=== PATIENT | female | born 1955 | race Caucasian/White ===

== ENCOUNTER 2016-11-11 13:41 | Inpatient (IN) | payer OTHER ==
[~2016-11-11] VITALS: Ht 162.6 cm; Wt 64.0 kg
--- NOTE | 2016-11-11 14:32 | ED Abdominal Pain ---
General Chief Complaint: Abdominal/GI Problems Stated Complaint: ABD PAIN/SYNCOPE Nursing Triage Note: AMB TO ROOM C/O EPI GASTRIC PAIN Sepsis Screen: No Definite Risk Source of Information: Patient Exam Limitations: No Limitations History of Present Illness Time Seen By Provider: 14:32 Allergies and Home Medications Allergies Coded Allergies: No Known Drug Allergies (Unverified , 11/11/16) Home Medications No Active Prescriptions or Reported Meds Past Fibbkkm-Qtqfaz-Ltxfya Hx Patient Social History Alcohol Use: Denies Use Recreational Drug Use: No Smoking Status: Never a Smoker Recent Foreign Travel: No Contact w/Someone Who Travel: No Recent Infectious Disease Expo: No Physical Exam Vital Signs VS - Last 72 Hours, by Label 11/11/16 13:49 Temp 97.6 Pulse 68 Resp 18 B/P (MAP) 164/98 Pulse Ox 98 Capillary Refill : Less Than 3 Seconds Progress/Results/Core Measures Results/Orders Vital Signs/I&O Vital Sign - Last 12Hours 11/11/16 13:49 Temp 97.6 Pulse 68 Resp 18 B/P (MAP) 164/98 Pulse Ox 98 Blood Pressure Mean: 120 Departure Departure-Patient Inst. Referrals: NO,LOCAL PHYSICIAN (PCP/Family) Primary Care Physician Scripts No Active Prescriptions or Reported Meds JOSEPH GRIMM Nov 11, 2016 14:32
[2016-11-11 14:42] LABS: KETONES,URINE 3+ (NEGATIVE); LEUKOCYTE ESTERASE ,URINE 2+ (NEGATIVE); NITRITE,URINE NEGATIVE (NEGATIVE); PH,URINE 6.5 (5-9); PROTEIN,URINE 2+ (NEGATIVE); UROBILINOGEN,URINE 8 MG/DL (NORMAL)
[2016-11-11 14:54] LABS: BILIRUBIN,URINE 2+ (NEGATIVE)
[2016-11-11 14:56] LABS: WBC,URINE 0-2 /HPF
[2016-11-11] MEDS ORDERED: FAMOTIDINE 20MG/2ML IV (PEPCID) IV STA (14:59)
[2016-11-11] MEDS ORDERED: NS IV 1000 ML 1,000 ML IV ONE (14:59)
[2016-11-11] MEDS ORDERED: KETOROLAC 30 MG/ML VIAL IVP STA (14:59)
[2016-11-11] MEDS ORDERED: ONDANSETRON 4 MG/2 ML (SDV) Z0FRAN IVP ONE (15:00)
[2016-11-11 15:11] LABS: BASOPHILS % (AUTO) 0 % (0-10); EOSINOPHILS % (AUTO) 0 % (0-10); LYMPHOCYTES % (AUTO) 8 % (12-44); MEAN CORPUSCULAR HEMOGLOBIN 32 PG (25-34); MEAN CORPUSCULAR HGB CONC 35 G/DL (32-36); MEAN CORPUSCULAR VOLUME 90 FL (80-99); MEAN PLATELET VOLUME 10.4 FL (7.4-10.4); MONOCYTES # (AUTO) 0.7 X 10^3 (0.0-1.0); MONOCYTES % (AUTO) 5 % (0-12); NEUTROPHILS # (AUTO) 12.2 X 10^3 (1.8-7.8); NEUTROPHILS % (AUTO) 88 % (42-75); PLATELET COUNT 323 10^3/uL (130-400); RED BLOOD COUNT 4.71 10^6/uL (4.35-5.85); RED CELL DISTRIBUTION WIDTH 12.2 % (10.0-14.5); WHITE BLOOD COUNT 13.9 10^3/uL (4.3-11.0)
[2016-11-11 15:42] LABS: ALANINE AMINOTRANSFERASE 708 U/L (0-55); ALBUMIN 4.2 GM/DL (3.2-4.5); ANION GAP 9 MMOL/L (5-14); ASPARTATE AMINO TRANSFERASE 1051 U/L (5-34); BLOOD UREA NITROGEN 10 MG/DL (7-18); BUN/CREATININE RATIO 14 (0-20); CALCIUM 9.4 MG/DL (8.5-10.1); CARBON DIOXIDE 26 MMOL/L (21-32); CHLORIDE 107 MMOL/L (98-107); CREATININE SERUM 0.72 MG/DL (0.60-1.30); GFR ESTIMATED > 60; GLUCOSE 135 MG/DL (70-105); POTASSIUM 3.4 MMOL/L (3.6-5.0); SODIUM 142 MMOL/L (135-145)
--- NOTE | 2016-11-11 16:11 | Diagnostic Imaging Report ---
PROCEDURE: US Gallbladder. TECHNIQUE: Multiple real-time grayscale images were obtained over the right upper quadrant in various projections. INDICATION: Severe right upper quadrant pain. FINDINGS: The visualized portions of the pancreas appear unremarkable. The liver is fairly homogeneous with no focal lesion. The gallbladder demonstrates multiple stones. There is pericholecystic fluid noted with borderline gallbladder wall thickness. The CBD is 7 mm in caliber, mildly dilated. There is mild intrahepatic biliary dilatation also suggested. The sonographic Durant sign is reportedly positive. The right kidney is 10.4 cm in length with no hydronephrosis or focal lesion. IMPRESSION: Gallbladder stones with pericholecystic fluid, concerning for acute cholecystitis. There is mild intra and extrahepatic biliary dilatation. CBD obstruction due to a distal stone is possible. A cholangiogram, ERCP, or MRCP would be helpful. The findings were discussed with Ms. Eden Gutierrez, the ER PA, at the time of dictation. Dictated by: Dictated on workstation # [id number]
[2016-11-11] MEDS ORDERED: PIPERACILLIN/TAZO 4.5 GM VIAL (ZOSYN) IV ONE (16:30)
[2016-11-11 16:35] LABS: LIPASE 3320 U/L (8-78)
[2016-11-11] MEDS ORDERED: NS (IVPB) 100 ML ONE ×2 (16:39→16:47)
[2016-11-11] MEDS: PIPERACILLIN/TAZO 4.5 GM VIAL (ZOSYN) IV ONE ×2 (17:04→17:12)
--- NOTE | 2016-11-11 17:22 | History & Physical-Surgical ---
History of Present Illness History of Present Illness Reason for visit/HPI Patient reports that she has had gallbladder issues in the past and tried to control it with diet. She reports that she had some spagetti last week and had some pain. She then reported that on Thursday, she had a slice of pizza that made it worse. She states that in the past, she just rested her stomach and she got better but this time the pain was not easing. Yesterday she had some rice, beets and carrots and later that day, the pain became unbearable. She waited it out during the night and at about 1 pm today, she decided to come to the ED. She reports being nauseated and vomited during the night. Date of Admission T Time Seen by Provider: 17:17 I consulted on this patient on 11/11/16 17:16 Attending Physician Admitting Physician No,Local Physician Consult Allergies and Home Medications Allergies Coded Allergies: No Known Drug Allergies (Unverified , 11/11/16) Home Medications No Active Prescriptions or Reported Meds Past Bgzmjiy-Okbnvh-Lerbex Hx Patient Social History Alcohol Use: Denies Use Recreational Drug Use: No Smoking Status: Never a Smoker Recent Foreign Travel: No Contact w/Someone Who Travel: No Recent Infectious Disease Expo: No Seasonal Allergies Seasonal Allergies: No Surgeries HX Surgeries: No Respiratory Hx Respiratory Disorders: No Neurological Hx Neurological Disorders: No Reproductive System : No Genitourinary Hx Genitourinary Disorders: No Gastrointestinal Hx Gastrointestinal Disorders: Yes Gastrointestinal Disorders: Gall Bladder Disease Musculoskeletal Hx Musculoskeletal Disorders: No HEENT HX ENT Disorders: No Cancer Hx Cancer: No Psychosocial Hx Psychiatric Problems: No Integumentary HX Skin/Integumentary Disorder: No Family Medical History Significant Family History: No Pertinent Family Hx Constitutional: fever, malaise, weakness EENTM: see HPI Respiratory: no symptoms reported Cardiovascular: no symptoms reported Gastrointestinal: RUQ, nausea, vomiting Genitourinary: no symptoms reported : No Musculoskeletal: no symptoms reported Skin: no symptoms reported Psychiatric/Neurological: No Symptoms Reported Physical Exam Vital Signs Vital Sign - Last 12Hours 11/11/16 11/11/16 13:49 17:33 Temp 97.6 Pulse 68 Resp 18 B/P (MAP) 164/98 Pulse Ox 98 O2 Delivery Room Air Capillary Refill : Less Than 3 Seconds General Appearance: No Apparent Distress, WD/WN Neck: Full Range of Motion, Normal Inspection Respiratory: Chest Non Tender, No Accessory Muscle Use, No Respiratory Distress Cardiovascular: Regular Rate, Rhythm Gastrointestinal: No Organomegaly, Soft, Tenderness (RUQ) Extremity: Non Tender, No Calf Tenderness, No Pedal Edema Neurologic/Psychiatric: Alert, Oriented x3 Skin: Normal Color Lymphatic: No Adenopathy Data Review Labs Laboratory Tests 11/11/16 14:36: Urine Color AMBERH, Urine Clarity CLEAR, Urine pH 6.5, Urine Specific [place] 1.020, Urine Protein 2+H, Urine Glucose (UA) NEGATIVE, Urine Ketones 3+H, Urine Nitrite NEGATIVE, Urine Bilirubin 2+H, Urine Urobilinogen 8H, Urine Leukocyte Esterase 2+H, Urine RBC (Auto) 1+H, Urine RBC RARE, Urine WBC 0-2, Urine Squamous Epithelial Cells 2-5, Urine Crystals NONE, Urine Bacteria NEGATIVE, Urine Casts NONE, Urine Mucus NEGATIVE, Urine Culture Indicated NO 11/11/16 15:05: White Blood Count 13.9H, Red Blood Count 4.71, Hemoglobin 15.0, Hematocrit 43, Mean Corpuscular Volume 90, Mean Corpuscular Hemoglobin 32, Mean Corpuscular Hemoglobin Concent 35, Red Cell Distribution Width 12.2, Platelet Count 323, Mean Platelet Volume 10.4, Neutrophils (%) (Auto) 88H, Lymphocytes (%) (Auto) 8L , Monocytes (%) (Auto) 5, Eosinophils (%) (Auto) 0, Basophils (%) (Auto) 0, Neutrophils # (Auto) 12.2H, Lymphocytes # (Auto) 1.0, Monocytes # (Auto) 0.7, Eosinophils # (Auto) 0.0, Basophils # (Auto) 0.0, Sodium Level 142, Potassium Level 3.4L, Chloride Level 107, Carbon Dioxide Level 26, Anion Gap 9, Blood Urea Nitrogen 10, Creatinine 0.72, Estimat Glomerular Filtration Rate > 60, BUN/ Creatinine Ratio 14, Glucose Level 135H, Calcium Level 9.4, Total Bilirubin 4.0H , Aspartate Amino Transf (AST/SGOT) 1051H, Alanine Aminotransferase (ALT/SGPT) 708H, Alkaline Phosphatase 197H, Total Protein 7.0, Albumin 4.2, Lipase 3320H Radiology KUMAR: SERENA MANZO [facility] REC#: [id number] PT STATUS: REG ER : 1955 PHYSICIAN: JOSEPH GUTIERREZ ADMIT DATE: 11/11/16/ER Draft Date of Exam:11/11/16 US GALLBLADDER [id number] PROCEDURE: US Gallbladder. TECHNIQUE: Multiple real-time grayscale images were obtained over the right upper quadrant in various projections. INDICATION: Severe right upper quadrant pain. FINDINGS: The visualized portions of the pancreas appear unremarkable. The liver is fairly homogeneous with no focal lesion. The gallbladder demonstrates multiple stones. There is pericholecystic fluid noted with borderline gallbladder wall thickness. The CBD is 7 mm in caliber, mildly dilated. There is mild intrahepatic biliary dilatation also suggested. The sonographic Durant sign is reportedly positive. The right kidney is 10.4 cm in length with no hydronephrosis or focal lesion. IMPRESSION: Gallbladder stones with pericholecystic fluid, concerning for acute cholecystitis. There is mild intra and extrahepatic biliary dilatation. CBD obstruction due to a distal stone is possible. A cholangiogram, ERCP, or MRCP would be helpful. The findings were discussed with Ms. Joseph Gutierrez, the ER PA, at the time of dictation. Dictated on workstation # [id number] Assessment/Plan Assessment/Plan Assessment/Plan Symptomatic Cholelithiasis Nausea and Vomiting RUQ pain Elevated ALT and AST Elevated Lipase. Possible CBD obstruction Ultra sound report Gallbladder stones with pericholecystic fluid, concerning for acute cholecystitis. There is mild intra and extrahepatic biliary dilatation. CBD obstruction due to a distal stone is possible. A cholangiogram, ERCP, or MRCP would be helpful. Patient will be NPO tonight. Lap Cholecystectomy, possible open, cholangiogram and all other indicated procedures tomorrow morning. Discussed Procedure with risks and benefits. Patient verbalized understanding and wants to proceed. Tanner- Patient is a 61 year old female who reports about 10 years of gallbladder symptoms. She adjusted diet and kept it under control she states. Last 4 days she got off of her diet and began having some epigastric pain and moved to right upper quadrant and to back. Pain yesterday kept intensifying and was a severe aching type pain. She had nausea and emesis. Food makes worse. Pain medication makes it better. No other complaints at this time. She had u/s demonstrating stones and pericholecystic fluid and ductal dilation. WBC elevated along with liver enzymes and lipase. Denies any fever sweats chills shortness of breath or chest pain. general laying in bed no acute distress heard ncat eyes nonicteric nares patent mouth moist heart regular lungs nonlabored abdomen soft tender in epigastric ruq no organomegaly ext nontender normal mood affect alert and oriented assessment as above plan iv hydration, zosyn pain control concern for possible cbd stone due to dilation cholangiogram to be performed discussed risks and benefits of laparoscopic cholecystectomy possible open all other indicated procedures and wishes to proceed plan surgery tomorrow all questions answered. HILDA HELM APRN Nov 11, 2016 17:22 DAVID TANNER DO Nov 11, 2016 19:49
[2016-11-11 17:35] VITALS: BP 146/67
[2016-11-11] MEDS ORDERED: ONDANSETRON 4 MG/2 ML (SDV) Z0FRAN IV PRN (18:00)
[2016-11-11] MEDS ORDERED: CATHETER FLUSH 10 ML SYR IV PRN (18:00)
[2016-11-11] MEDS ORDERED: PROMETHAZINE INJ 25 MG/ML (PHENERGAN) AMP IV PRN (18:00)
[2016-11-11] MEDS: morphine INJ 4 MG/ML 1 ML (VIAL/SYRINGE) IV PRN (18:03)
[2016-11-11] MEDS: NS W/KCL 20 MEQ/L 1,000 ML IV SCH (18:21)
[2016-11-11 19:55] VITALS: BP 126/57
[2016-11-11] MEDS: FAMOTIDINE 20MG/2ML IV (PEPCID) IV SCH (20:21)
[2016-11-11] MEDS: PIPERACILLIN/TAZOBACTAM 4.5 GM/NS 100 ML IVPB IV SCH ×2 (23:01)
[2016-11-12 00:40] VITALS: BP 121/56
[2016-11-12] MEDS: NS W/KCL 20 MEQ/L 1,000 ML IV SCH ×4 (02:13→20:49)
[2016-11-12 04:45] VITALS: BP 119/58
[2016-11-12 05:07] LABS: BASOPHILS % (AUTO) 0 % (0-10); EOSINOPHILS % (AUTO) 0 % (0-10); LYMPHOCYTES # (AUTO) 1.6 X 10^3 (1.0-4.0); LYMPHOCYTES % (AUTO) 14 % (12-44); MEAN CORPUSCULAR HEMOGLOBIN 32 PG (25-34); MEAN CORPUSCULAR HGB CONC 34 G/DL (32-36); MEAN CORPUSCULAR VOLUME 94 FL (80-99); MEAN PLATELET VOLUME 11.1 FL (7.4-10.4); MONOCYTES # (AUTO) 0.5 X 10^3 (0.0-1.0); MONOCYTES % (AUTO) 5 % (0-12); NEUTROPHILS # (AUTO) 8.7 X 10^3 (1.8-7.8); NEUTROPHILS % (AUTO) 80 % (42-75); PLATELET COUNT 259 10^3/uL (130-400); RED BLOOD COUNT 3.94 10^6/uL (4.35-5.85); RED CELL DISTRIBUTION WIDTH 12.5 % (10.0-14.5); WHITE BLOOD COUNT 10.8 10^3/uL (4.3-11.0)
[2016-11-12 05:34] LABS: ALANINE AMINOTRANSFERASE 472 U/L (0-55); ALBUMIN 3.1 GM/DL (3.2-4.5); ASPARTATE AMINO TRANSFERASE 395 U/L (5-34); BILIRUBIN,TOTAL 2.4 MG/DL (0.1-1.0); BLOOD UREA NITROGEN 12 MG/DL (7-18); BUN/CREATININE RATIO 17 (0-20); CALCIUM 8.2 MG/DL (8.5-10.1); CARBON DIOXIDE 22 MMOL/L (21-32); GFR ESTIMATED > 60; GLUCOSE 91 MG/DL (70-105); POTASSIUM 3.8 MMOL/L (3.6-5.0); SODIUM 144 MMOL/L (135-145); TOTAL PROTEIN 5.7 GM/DL (6.4-8.2)
[2016-11-12 05:59] LABS: LIPASE 1339 U/L (8-78)
[2016-11-12 06:04] LABS: ANION GAP 9 MMOL/L (5-14); CHLORIDE 113 MMOL/L (98-107)
[2016-11-12] MEDS: PIPERACILLIN/TAZOBACTAM 4.5 GM/NS 100 ML IVPB IV SCH ×6 (06:20→23:06)
[2016-11-12] MEDS ORDERED: MAGN400T39 PO (08:00)
[2016-11-12] MEDS: FAMOTIDINE 20MG/2ML IV (PEPCID) IV SCH ×2 (08:12→20:49)
[2016-11-12 08:30] VITALS: BP 127/69
--- NOTE | 2016-11-12 08:45 | Progress Note ---
Subjective Time Seen by Provider: 08:20 Subjective/Events-last exam Patient resting in bed. Even respirations. Denies any pain at this time. Alert and oriented x 3. No signs of nausea or vomiting. C/O color of urine during the night. Urine culture sent to lab. Objective Exam Vital Signs Date Time Temp Pulse Resp B/P (MAP) Pulse Ox O2 Delivery O2 Flow Rate FiO2 11/12/16 04:45 99.2 63 20 119/58 95 Room Air 11/12/16 00:40 98.6 59 20 121/56 95 Room Air 11/11/16 21:00 Room Air 11/11/16 19:55 98.3 61 18 126/57 98 Room Air 11/11/16 17:35 98.8 62 18 146/67 97 Room Air 11/11/16 17:33 84 18 98 Room Air 11/11/16 13:49 97.6 68 18 164/98 98 I & O 11/12/16 07:00 Intake Total 1000 ml Output Total 300 ml Balance 700 ml Capillary Refill : Less Than 3 Seconds General Appearance: No Apparent Distress, WD/WN Neck: Full Range of Motion, Normal Inspection Respiratory: Chest Non Tender, No Accessory Muscle Use, No Respiratory Distress Cardiovascular: Regular Rate, Rhythm Gastrointestinal: soft, no organomegaly Extremity: Non Tender, No Calf Tenderness, No Pedal Edema Neurologic/Psychiatric: Alert, Oriented x3 Skin: Normal Color Lymphatic: No Adenopathy Results Lab Laboratory Tests Test 11/11/16 14:36 11/11/16 15:05 11/12/16 04:36 Range/Units Urine Color MIN H Urine Clarity CLEAR Urine pH 6.5 5-9 Urine Specific [place] 1.020 1.016-1.022 Urine Protein 2+ H NEGATIVE Urine Glucose (UA) NEGATIVE NEGATIVE Urine Ketones 3+ H NEGATIVE Urine Nitrite NEGATIVE NEGATIVE Urine Bilirubin 2+ H NEGATIVE Urine Urobilinogen 8 H NORMAL MG/DL Urine Leukocyte Esterase 2+ H NEGATIVE Urine RBC (Auto) 1+ H NEGATIVE Urine RBC RARE /HPF Urine WBC 0-2 /HPF Urine Squamous Epithelial Cells 2-5 /HPF Urine Crystals NONE /LPF Urine Bacteria NEGATIVE /HPF Urine Casts NONE /LPF Urine Mucus NEGATIVE /LPF Urine Culture Indicated NO White Blood Count 13.9 H 10.8 4.3-11.0 10^3/uL Red Blood Count 4.71 3.94 L 4.35-5.85 10^6/uL Hemoglobin 15.0 12.4 11.5-16.0 G/DL Hematocrit 43 37 35-52 % Mean Corpuscular Volume 90 94 80-99 FL Mean Corpuscular Hemoglobin 32 32 25-34 PG Mean Corpuscular Hemoglobin Concent 35 34 32-36 G/DL Red Cell Distribution Width 12.2 12.5 10.0-14.5 % Platelet Count 323 259 130-400 10^3/uL Mean Platelet Volume 10.4 11.1 H 7.4-10.4 FL Neutrophils (%) (Auto) 88 H 80 H 42-75 % Lymphocytes (%) (Auto) 8 L 14 12-44 % Monocytes (%) (Auto) 5 5 0-12 % Eosinophils (%) (Auto) 0 0 0-10 % Basophils (%) (Auto) 0 0 0-10 % Neutrophils # (Auto) 12.2 H 8.7 H 1.8-7.8 X 10^3 Lymphocytes # (Auto) 1.0 1.6 1.0-4.0 X 10^3 Monocytes # (Auto) 0.7 0.5 0.0-1.0 X 10^3 Eosinophils # (Auto) 0.0 0.0 0.0-0.3 10^3/uL Basophils # (Auto) 0.0 0.0 0.0-0.1 10^3/uL Sodium Level 142 144 135-145 MMOL/L Potassium Level 3.4 L 3.8 3.6-5.0 MMOL/L Chloride Level 107 113 H 98-107 MMOL/L Carbon Dioxide Level 26 22 21-32 MMOL/L Anion Gap 9 9 5-14 MMOL/L Blood Urea Nitrogen 10 12 7-18 MG/DL Creatinine 0.72 0.70 0.60-1.30 MG/DL Estimat Glomerular Filtration Rate > 60 > 60 BUN/Creatinine Ratio 14 17 0-20 Glucose Level 135 H 91 70-105 MG/DL Calcium Level 9.4 8.2 L 8.5-10.1 MG/DL Total Bilirubin 4.0 H 2.4 H 0.1-1.0 MG/DL Aspartate Amino Transf (AST/SGOT) 1051 H 395 H 5-34 U/L Alanine Aminotransferase (ALT/SGPT) 708 H 472 H 0-55 U/L Alkaline Phosphatase 197 H 138 H 40-136 U/L Total Protein 7.0 5.7 L 6.4-8.2 GM/DL Albumin 4.2 3.1 L 3.2-4.5 GM/DL Lipase 3320 H 1339 H 8-78 U/L Laboratory Tests 11/11/16 14:36: Urine Color AMBERH, Urine Clarity CLEAR, Urine pH 6.5, Urine Specific [place] 1.020, Urine Protein 2+H, Urine Glucose (UA) NEGATIVE, Urine Ketones 3+H, Urine Nitrite NEGATIVE, Urine Bilirubin 2+H, Urine Urobilinogen 8H, Urine Leukocyte Esterase 2+H, Urine RBC (Auto) 1+H, Urine RBC RARE, Urine WBC 0-2, Urine Squamous Epithelial Cells 2-5, Urine Crystals NONE, Urine Bacteria NEGATIVE, Urine Casts NONE, Urine Mucus NEGATIVE, Urine Culture Indicated NO 11/11/16 15:05: White Blood Count 13.9H, Red Blood Count 4.71, Hemoglobin 15.0, Hematocrit 43, Mean Corpuscular Volume 90, Mean Corpuscular Hemoglobin 32, Mean Corpuscular Hemoglobin Concent 35, Red Cell Distribution Width 12.2, Platelet Count 323, Mean Platelet Volume 10.4, Neutrophils (%) (Auto) 88H, Lymphocytes (%) (Auto) 8L , Monocytes (%) (Auto) 5, Eosinophils (%) (Auto) 0, Basophils (%) (Auto) 0, Neutrophils # (Auto) 12.2H, Lymphocytes # (Auto) 1.0, Monocytes # (Auto) 0.7, Eosinophils # (Auto) 0.0, Basophils # (Auto) 0.0, Sodium Level 142, Potassium Level 3.4L, Chloride Level 107, Carbon Dioxide Level 26, Anion Gap 9, Blood Urea Nitrogen 10, Creatinine 0.72, Estimat Glomerular Filtration Rate > 60, BUN/ Creatinine Ratio 14, Glucose Level 135H, Calcium Level 9.4, Total Bilirubin 4.0H , Aspartate Amino Transf (AST/SGOT) 1051H, Alanine Aminotransferase (ALT/SGPT) 708H, Alkaline Phosphatase 197H, Total Protein 7.0, Albumin 4.2, Lipase 3320H 11/12/16 04:36: White Blood Count 10.8, Red Blood Count 3.94L, Hemoglobin 12.4, Hematocrit 37, Mean Corpuscular Volume 94, Mean Corpuscular Hemoglobin 32, Mean Corpuscular Hemoglobin Concent 34, Red Cell Distribution Width 12.5, Platelet Count 259, Mean Platelet Volume 11.1H, Neutrophils (%) (Auto) 80H, Lymphocytes (%) (Auto) 14, Monocytes (%) (Auto) 5, Eosinophils (%) (Auto) 0, Basophils (%) (Auto) 0, Neutrophils # (Auto) 8.7H, Lymphocytes # (Auto) 1.6, Monocytes # (Auto) 0.5, Eosinophils # (Auto) 0.0, Basophils # (Auto) 0.0, Sodium Level 144, Potassium Level 3.8, Chloride Level 113H, Carbon Dioxide Level 22, Anion Gap 9, Blood Urea Nitrogen 12, Creatinine 0.70, Estimat Glomerular Filtration Rate > 60, BUN/ Creatinine Ratio 17, Glucose Level 91, Calcium Level 8.2L, Total Bilirubin 2.4H , Aspartate Amino Transf (AST/SGOT) 395H, Alanine Aminotransferase (ALT/SGPT) 472H, Alkaline Phosphatase 138H, Total Protein 5.7L, Albumin 3.1L, Lipase 1339H Assessment/Plan Assessment/Plan Assessment/Plan Symptomatic Cholelithiasis Nausea and Vomiting RUQ pain Elevated ALT and AST- trending down Elevated Lipase- Trending down Possible CBD obstruction Lap Cholecystectomy, possible open, cholangiogram and all other indicated procedures this morning. Deepa- Patient feeling better. Labs improving. Patient NPO No nausea or emesis denies fever sweats chills shortness of breath or chest pain. general no acute distress heart regular lungs nonlabored abdomen soft still with slight tenderness epigastric region ext nontender alert and oriented normal mood and affect acute cholecystitis cholelithiasis, pancreatitis labs improving pain improved plan lap emmanuel c ioc today MICHAELAGWUHILDA APRN Nov 12, 2016 08:45 DAVID TANNER DO Nov 12, 2016 09:04
[2016-11-12] MEDS: morphine INJ 4 MG/ML 1 ML (VIAL/SYRINGE) IV PRN (09:02)
[2016-11-12] MEDS ORDERED: BUPIVACAINE 0.5% 30 ML (SENSORCAINE) VIAL ONE (13:07)
[2016-11-12] MEDS ORDERED: LIDOCAINE 1% INJ 20 ML (XYLOCAINE) VIAL ONE (13:07)
[2016-11-12] MEDS ORDERED: DEXAMETHASONE PF 10 MG/ML (DECADRON) VIAL ONE (14:14)
[2016-11-12] MEDS ORDERED: ONDANSETRON 4 MG/2 ML (SDV) Z0FRAN ONE (14:14)
[2016-11-12] MEDS ORDERED: proPOfol 200 MG/20 ML (DIPRIVAN) VIAL IV ONE (14:14)
[2016-11-12] MEDS ORDERED: SEVOFLURANE (ULTANE) 15 ML INHAL SOLN ONE ×4 (14:14→16:40)
[2016-11-12] MEDS ORDERED: fentaNYL INJECTION 100 MCG/2 ML AMP ONE ×2 (14:14→15:41)
[2016-11-12] MEDS ORDERED: MIDAZOLAM 2 MG/2 ML (VERSED) VIAL ONE (14:14)
[2016-11-12] MEDS ORDERED: LIDOCAINE PF 0.5% 50 ML (XYLOCAINE) VIAL ONE (14:14)
[2016-11-12] MEDS ORDERED: ROCURONIUM 50 MG/5 ML (ZEMURON) VIAL IV ONE (14:14)
[2016-11-12] MEDS ORDERED: LACTATED RINGERS 1,000 ML IV ONE ×2 (14:14→16:40)
[2016-11-12] MEDS ORDERED: morphine INJ 10 MG/ML 1ML (SYR OR VIAL) ONE (14:31)
[2016-11-12] MEDS: LACTATED RINGERS 1,000 ML IV SCH ×2 (14:45→16:05)
--- NOTE | 2016-11-12 16:28 | Progress Note-Post Operative ---
Post-Operative Progess Note Surgeon (s)/Tester Armature Or Fields (s) Surgeon DAVID TANNER DO Tester Armature Or Fields: Dr. Champion Pre-Operative Diagnosis acute cholecystitis cholelithiasis Post-Operative Diagnosis acute cholecystitis Procedure & Operative Findings Date of Procedure 11/12/16 Procedure Performed/Findings lap emmanuel c IOC Anesthesia Type general Estimated Blood Loss Estimated blood loss (mL): minimal Specimens/Packing Specimens Removed gallbladder DAVID TANNER DO Nov 12, 2016 4:28 pm
[2016-11-12] MEDS ORDERED: NEOSTIGMINE (BLOXIVERZ ) 1 MG/1ML 10 ML VIAL ONE (16:34)
[2016-11-12] MEDS ORDERED: GLYCOPYRROLATE 0.2 MG/ML (ROBINUL) 2 ML VIAL ONE (16:34)
--- NOTE | 2016-11-12 16:50 | Diagnostic Imaging Report ---
EXAMINATION: Intraoperative cholangiogram was performed by Dr. Arenas. INDICATION: Abdominal pain. FLUOROSCOPY TIME: 12 seconds. IMPRESSION: There is a constriction of the CBD, distally, probably related to the intrapancreatic portion and possibly spasm with no obstruction seen. No filling defect is noted. IMPRESSION: No CBD obstruction or evidence of stones. The distal CBD demonstrates narrowing that appears slightly irregular. This could be related to spasm. A periampullary mass cannot be entirely excluded. Further evaluation with followup MRCP is recommended. The findings were discussed with Dr. Arenas at time of dictation. Dictated by: Dictated on workstation # [id number]
[2016-11-12] MEDS ORDERED: ONDANSETRON 4 MG/2 ML (SDV) Z0FRAN IVP PRN (17:00)
[2016-11-12] MEDS ORDERED: KETOROLAC 30 MG/ML VIAL IVP ONE (17:00)
[2016-11-12] MEDS ORDERED: morphine INJ 10 MG/ML 1ML (SYR OR VIAL) IVP PRN (17:00)
[2016-11-12 17:38] VITALS: BP 128/60
[2016-11-12 20:00] VITALS: BP 135/60
[2016-11-13] VITALS: BP 105/59
[2016-11-13] MEDS: LACTATED RINGERS 1,000 ML IV SCH ×2 (01:35→11:40)
[2016-11-13 04:00] VITALS: BP 107/57
[2016-11-13] MEDS: NS W/KCL 20 MEQ/L 1,000 ML IV SCH ×2 (04:03→11:40)
[2016-11-13 05:42] LABS: MEAN PLATELET VOLUME 11.2 FL (7.4-10.4); RED BLOOD COUNT 3.66 10^6/uL (4.35-5.85); RED CELL DISTRIBUTION WIDTH 12.6 % (10.0-14.5); WHITE BLOOD COUNT 20.5 10^3/uL (4.3-11.0)
[2016-11-13 06:10] LABS: ALANINE AMINOTRANSFERASE 258 U/L (0-55); ANION GAP 7 MMOL/L (5-14); ASPARTATE AMINO TRANSFERASE 108 U/L (5-34); BILIRUBIN,TOTAL 1.1 MG/DL (0.1-1.0); BLOOD UREA NITROGEN 12 MG/DL (7-18); BUN/CREATININE RATIO 18 (0-20); CALCIUM 8.2 MG/DL (8.5-10.1); CARBON DIOXIDE 20 MMOL/L (21-32); CHLORIDE 113 MMOL/L (98-107); CREATININE SERUM 0.66 MG/DL (0.60-1.30); GFR ESTIMATED > 60; GLUCOSE 134 MG/DL (70-105); HEMOLYSIS 5 (0-29); ICTERUS 0.9 (0-1.9); POTASSIUM 4.3 MMOL/L (3.6-5.0); SODIUM 140 MMOL/L (135-145); TOTAL PROTEIN 4.8 GM/DL (6.4-8.2)
[2016-11-13 06:12] LABS: LIPEMIA 0 (0-49)
[2016-11-13] MEDS: PIPERACILLIN/TAZOBACTAM 4.5 GM/NS 100 ML IVPB IV SCH ×2 (06:15)
[2016-11-13 08:00] VITALS: BP 113/63
--- NOTE | 2016-11-13 08:41 | Progress Note ---
Subjective Time Seen by Provider: 08:36 Subjective/Events-last exam Patient resting in bed, On clear liquids. Denies any abd pain and no N/V. Objective Exam Vital Signs Date Time Temp Pulse Resp B/P (MAP) Pulse Ox O2 Delivery O2 Flow Rate FiO2 11/13/16 08:00 97.8 67 18 113/63 97 Room Air 11/13/16 04:00 97.3 58 18 107/57 96 Room Air 11/13/16 00:00 96.8 58 16 105/59 99 Room Air 11/12/16 21:00 Room Air 11/12/16 20:00 98.3 82 18 135/60 92 Room Air 11/12/16 18:48 Room Air 11/12/16 17:38 97.6 66 16 128/60 94 Room Air 11/12/16 09:00 Room Air I & O 11/13/16 07:00 Intake Total 4030 ml Output Total 2225 ml Balance 1805 ml Capillary Refill : Less Than 3 Seconds General Appearance: No Apparent Distress, WD/WN Neck: Full Range of Motion, Normal Inspection Respiratory: Chest Non Tender, No Accessory Muscle Use, No Respiratory Distress Cardiovascular: Regular Rate, Rhythm Gastrointestinal: non tender, soft, no organomegaly Extremity: Non Tender, No Calf Tenderness, No Pedal Edema Neurologic/Psychiatric: Alert, Oriented x3 Skin: Normal Color Lymphatic: No Adenopathy Results Lab Laboratory Tests Test 11/11/16 14:36 11/11/16 15:05 11/12/16 04:36 11/13/16 05:30 Range/Units Urine Color MIN H Urine Clarity CLEAR Urine pH 6.5 5-9 Urine Specific [place] 1.020 1.016-1.022 Urine Protein 2+ H NEGATIVE Urine Glucose (UA) NEGATIVE NEGATIVE Urine Ketones 3+ H NEGATIVE Urine Nitrite NEGATIVE NEGATIVE Urine Bilirubin 2+ H NEGATIVE Urine Urobilinogen 8 H NORMAL MG/DL Urine Leukocyte Esterase 2+ H NEGATIVE Urine RBC (Auto) 1+ H NEGATIVE Urine RBC RARE /HPF Urine WBC 0-2 /HPF Urine Squamous Epithelial Cells 2-5 /HPF Urine Crystals NONE /LPF Urine Bacteria NEGATIVE /HPF Urine Casts NONE /LPF Urine Mucus NEGATIVE /LPF Urine Culture Indicated NO White Blood Count 13.9 H 10.8 20.5 H 4.3-11.0 10^3/uL Red Blood Count 4.71 3.94 L 3.66 L 4.35-5.85 10^6/uL Hemoglobin 15.0 12.4 11.6 11.5-16.0 G/DL Hematocrit 43 37 35 35-52 % Mean Corpuscular Volume 90 94 96 80-99 FL Mean Corpuscular Hemoglobin 32 32 32 25-34 PG Mean Corpuscular Hemoglobin Concent 35 34 33 32-36 G/DL Red Cell Distribution Width 12.2 12.5 12.6 10.0-14.5 % Platelet Count 323 259 231 130-400 10^3/uL Mean Platelet Volume 10.4 11.1 H 11.2 H 7.4-10.4 FL Neutrophils (%) (Auto) 88 H 80 H 42-75 % Lymphocytes (%) (Auto) 8 L 14 12-44 % Monocytes (%) (Auto) 5 5 0-12 % Eosinophils (%) (Auto) 0 0 0-10 % Basophils (%) (Auto) 0 0 0-10 % Neutrophils # (Auto) 12.2 H 8.7 H 1.8-7.8 X 10^3 Lymphocytes # (Auto) 1.0 1.6 1.0-4.0 X 10^3 Monocytes # (Auto) 0.7 0.5 0.0-1.0 X 10^3 Eosinophils # (Auto) 0.0 0.0 0.0-0.3 10^3/uL Basophils # (Auto) 0.0 0.0 0.0-0.1 10^3/uL Sodium Level 142 144 140 135-145 MMOL/L Potassium Level 3.4 L 3.8 4.3 3.6-5.0 MMOL/L Chloride Level 107 113 H 113 H 98-107 MMOL/L Carbon Dioxide Level 26 22 20 L 21-32 MMOL/L Anion Gap 9 9 7 5-14 MMOL/L Blood Urea Nitrogen 10 12 12 7-18 MG/DL Creatinine 0.72 0.70 0.66 0.60-1.30 MG/DL Estimat Glomerular Filtration Rate > 60 > 60 > 60 BUN/Creatinine Ratio 14 17 18 0-20 Glucose Level 135 H 91 134 H 70-105 MG/DL Calcium Level 9.4 8.2 L 8.2 L 8.5-10.1 MG/DL Total Bilirubin 4.0 H 2.4 H 1.1 H 0.1-1.0 MG/DL Aspartate Amino Transf (AST/SGOT) 1051 H 395 H 108 H 5-34 U/L Alanine Aminotransferase (ALT/SGPT) 708 H 472 H 258 H 0-55 U/L Alkaline Phosphatase 197 H 138 H 119 40-136 U/L Total Protein 7.0 5.7 L 4.8 L 6.4-8.2 GM/DL Albumin 4.2 3.1 L 3.0 L 3.2-4.5 GM/DL Lipase 3320 H 1339 H 8-78 U/L Laboratory Tests 11/13/16 05:30: White Blood Count 20.5H, Red Blood Count 3.66L, Hemoglobin 11.6, Hematocrit 35, Mean Corpuscular Volume 96, Mean Corpuscular Hemoglobin 32, Mean Corpuscular Hemoglobin Concent 33, Red Cell Distribution Width 12.6, Platelet Count 231, Mean Platelet Volume 11.2H, Sodium Level 140, Potassium Level 4.3, Chloride Level 113H, Carbon Dioxide Level 20L, Anion Gap 7, Blood Urea Nitrogen 12, Creatinine 0.66, Estimat Glomerular Filtration Rate > 60, BUN/Creatinine Ratio 18, Glucose Level 134H, Calcium Level 8.2L, Total Bilirubin 1.1H, Aspartate Amino Transf (AST/SGOT) 108H, Alanine Aminotransferase (ALT/SGPT) 258H, Alkaline Phosphatase 119, Total Protein 4.8L, Albumin 3.0L Assessment/Plan Assessment/Plan Assessment/Plan S/P Lap Litzy. Elevated WBC Nausea and Vomiting- resolved RUQ pain-resolved Elevated ALT and AST- trending down Elevated Lipase- Trending down Will continue to monitor patient. Pain control. Advance diet as tolerated. D/C IV fluid as patient is drinking with no nausea. Continue IV antibiotics. Possible MRCP today as recommended after cholangiogram. Will discuss with Dr. Areans. Labs. Deepa- Patient not having any significant pain since surgery. Feeling much better. Tolerating liquids. WBC up likely reactive to surgery all other chemistries improving. Denies any fever sweats chills shortness of breath or chest pain. General no acute distress heart reg lungs nonlabored abdomen soft incisions c/d/i ext nontender s/p lap litzy c ioc on IOC had slight narrowing of distal cbd will plan mrcp as outpatient. Feel this is likely secondary to a stone passing and spasm of cbd okay to dc home with close follow up HILDA HELM APRN Nov 13, 2016 8:41 am DAVID ARENAS DO Nov 13, 2016 10:35 am
[2016-11-13] MEDS: FAMOTIDINE 20MG/2ML IV (PEPCID) IV SCH (08:42)
[2016-11-13] MEDS ORDERED: DOCU-143 PO (08:44)
[2016-11-13] MEDS ORDERED: HYDR-3812 PO (08:44)
--- NOTE | 2016-11-13 08:45 | Discharge Inst-Simple/Standard ---
Discharge Inst-Standard Discharge Medications New, Converted or Re-Newed RX: RX on Chart Patient Instructions/Follow Up Plan of Care/Instructions/FU: Establish Care with PCP as soon as possible Follow up with Dr. Arenas in 2 weeks Take medication as directed. Order CBC and CMP for thursdayNovember 17. Activity as Tolerated: No Discharge Diet: No Restrictions Other Inst to Patient Follow up Appt: Make appointment for 2 weeks. Instructions: No lifting greater than 10 pounds. No strenuous activity. May shower in 24 hours, no tub bath or soaking. Use incentive spirometer at home as directed. No Smoking Skin/Wound Care: May remove bandages. You need to leave the white strips over incision on they will fall off on their own. Symptoms to Report: Appetite Changes, Extremity Discoloration, Numbness/Tingling, Swelling Increased , Bleeding Excessive, Eyesight Changes, Pain Increased, Urine Color Change, Constipation(Persistent), Fever over 101 degree F, Pain/Pressure in chest, Urinating Difficulty, Cough Up/Vomit Blood, Heart Beat Irreg/Pounding, Pain/ Pressure in jaw, Vaginal Bleeding Increase, Cramps in feet or legs, Lightheadedness, Pain/Pressure in shoulder, Diarrhea(Persistent), Memory Changes Suddenly, Questions/Concerns, Weight gain consecutive days, Dizziness/ Fainting, Nausea/Vomiting, Shortness of Breath, Weight gain over 2 pounds. If eyes or skin turn yellow notify physician. If questions or concerns contact your physician Or seek help at emergency department. HILDA HELM APRN Nov 13, 2016 08:45
[2016-11-13] MEDS ORDERED: AMOX-358 PO ×2 (08:54→08:56)
[2016-11-13 14:34] VITALS: BP 113/63
--- NOTE | 2016-11-13 15:46 | OPERATIVE REPORT ---
DATE OF SERVICE: 11/12/2016 PREOPERATIVE DIAGNOSIS: Acute cholecystitis, cholelithiasis. POSTOPERATIVE DIAGNOSIS: Acute cholecystitis, cholelithiasis. PROCEDURE: Laparoscopic cholecystectomy with intraoperative cholangiogram. SURGEON: David Arenas DO SERVICE PARTS COORDINATOR: Dr. Champion to assist in retraction, dissection and closure. ANESTHESIA: General. ESTIMATED BLOOD LOSS: Minimal. COMPLICATIONS: None. INDICATIONS: The patient is a 61-year-old female who presented with right upper quadrant abdominal pain. There was question of common bile duct stone. She was placed on IV antibiotics and IV hydration and her labs did improve. She had another bout of pain today. She had an ultrasound demonstrating cholelithiasis and pericholecystic fluid consistent with acute cholecystitis. She understands risks and benefits of procedure and wished to proceed with procedure. Consent was signed and on the chart. DESCRIPTION OF PROCEDURE: The patient was taken to the operating suite. She was prepped and draped in sterile fashion. Surgical pause was performed. A 12 mm incision was made at the umbilicus and cautery used to dissect down to the fascia where it was then scored, grasped with Kochers and elevated. The abdomen was then entered. A balloon trocar was then placed and pneumoperitoneum was achieved. Under direct visualization of the laparoscope a 5 mm trocar was placed in the subxiphoid region and two 5 mm trocars were placed in the right upper quadrant. Gallbladder was then located. There were some interloop adhesions of omentum up to the liver and to the gallbladder which then had to be taken down with a [place] and some cautery dissection. Gallbladder was edematous and inflamed with lots of pericholecystic fluid present. The gallbladder was elevated. The cystic duct and cystic artery was then dissected around. The cystic artery had clips placed on the proximal and distal portion and then the cystic duct had a clip placed on the distal portion. The cystic duct was then partially transected. An arrow catheter was inserted and cholangiogram was then performed. There were no filling defects and contrast made its way into the duodenum. There was a little bit of narrowing towards the distal portion of the common bile duct which I think is related to spasm. The catheter was removed. Clips were placed on the proximal portion and this was then completely transected along with the cystic artery. Hook cautery was used to dissect the gallbladder from the gallbladder fossa achieving hemostasis, again noting significant pericholecystic edema and fluid. Hemostasis was achieved. The gallbladder was then removed and placed in an Endobag and removed through the 12 mm trocar site. A small area on the liver had a small bleed which then cautery was used to control bleeding. A small piece of Surgicel was also placed on it as well near the gallbladder fossa. Prior to placing Surgicel, copious amounts of irrigation were used to irrigate and suction. The abdomen was then desufflated, the trocars were removed. A 0 Vicryl suture that was placed on the fascia prior to placing the balloon trocar was then tied down which was in a [id number] fashion. The wounds were then irrigated and the skin was then closed using 4-0 Vicryl in a subcuticular fashion. The patient then had the areas washed and dried and Dermabond placed over the incisions. The patient tolerated procedure well without any complications. She was taken to the recovery room in stable condition. Job ID: [id number] DocumentID: [id number] Dictated Date: 11/13/2016 13:47:07 Capper Machine Operator Date: 11/13/2016 15:45:56 Dictated By: DAVID ARENAS DO
== END 2016-11-13 14:39 | disposition home or self-care (01) | DRG 419 ==
LOC: ER 13:45 → 4TH 16:50
PROVIDERS: ADMIT Surgery; ATTEND Surgery
PROC: 0FT44ZZ Resection of Gallbladder, Percutaneous Endoscopic Approach (ICD-10-PCS; principal; 2016-11-13)
DX: K80.00 Calculus of gallbladder with acute cholecystitis without obstruction (principal)
CPT/HCPCS: 36415; 76705; 80053; 81000; 83690; 85025; 85027; 87081; 94664

== ENCOUNTER → 2016-11-17 | Outpatient (CLI) | payer OTHER ==
[~2016-11-17] MED LIST: AMOX-358 PO; DOCU-143 PO; HYDR-3812 PO; MAGN400T39 PO
[2016-11-17 11:47] LABS: BASOPHILS % (AUTO) 0 % (0-10); EOSINOPHILS # (AUTO) 0.1 10^3/uL (0.0-0.3); EOSINOPHILS % (AUTO) 0 % (0-10); LYMPHOCYTES # (AUTO) 1.9 X 10^3 (1.0-4.0); LYMPHOCYTES % (AUTO) 10 % (12-44); MEAN CORPUSCULAR HEMOGLOBIN 32 PG (25-34); MEAN CORPUSCULAR HGB CONC 34 G/DL (32-36); MEAN CORPUSCULAR VOLUME 94 FL (80-99); MEAN PLATELET VOLUME 10.6 FL (7.4-10.4); MONOCYTES # (AUTO) 0.9 X 10^3 (0.0-1.0); MONOCYTES % (AUTO) 5 % (0-12); NEUTROPHILS # (AUTO) 15.8 X 10^3 (1.8-7.8); NEUTROPHILS % (AUTO) 85 % (42-75); PLATELET COUNT 407 10^3/uL (130-400); RED BLOOD COUNT 4.12 10^6/uL (4.35-5.85); RED CELL DISTRIBUTION WIDTH 12.4 % (10.0-14.5); WHITE BLOOD COUNT 18.6 10^3/uL (4.3-11.0)
[2016-11-17 12:09] LABS: ALANINE AMINOTRANSFERASE 58 U/L (0-55); ALBUMIN 3.6 GM/DL (3.2-4.5); ANION GAP 11 MMOL/L (5-14); ASPARTATE AMINO TRANSFERASE 19 U/L (5-34); BILIRUBIN,TOTAL 0.7 MG/DL (0.1-1.0); BLOOD UREA NITROGEN 10 MG/DL (7-18); BUN/CREATININE RATIO 14 (0-20); CALCIUM 9.3 MG/DL (8.5-10.1); CARBON DIOXIDE 29 MMOL/L (21-32); CHLORIDE 101 MMOL/L (98-107); CREATININE SERUM 0.69 MG/DL (0.60-1.30); GFR ESTIMATED > 60; GLUCOSE 128 MG/DL (70-105); HEMOLYSIS 8 (-100-29); ICTERUS 0.6 (-100-1.9); LIPEMIA -3 (-100-49); POTASSIUM 3.3 MMOL/L (3.6-5.0); SODIUM 141 MMOL/L (135-145); TOTAL PROTEIN 7.2 GM/DL (6.4-8.2)
== END ==
LOC: LAB 11:29
PROVIDERS: ATTEND Surgery
DX: K85.90 Acute pancreatitis without necrosis or infection, unspecified (principal)
CPT/HCPCS: 36415; 80053; 85025